=== PATIENT | male | born 1950 | race Caucasian/White ===

== ENCOUNTER 2017-02-11 02:47 | Inpatient (IN) | payer OTHER ==
[~2017-02-11] VITALS: Ht 175.3 cm; Wt 90.9 kg
[2017-02-11 03:58] LABS: HEMATOCRIT 37.2 % (38.0-50.0); MCH 30.4 PG (29.0-34.0); MCHC 34.7 G/DL (30.0-36.0); MCV 87.7 FL (86-99); MEAN PLAT.VOLUME 10.9 uM^3 (9.0-12.4); PLATELET COUNT 146 K/uL (156-360); RBC DIS.WIDTH-CV 11.8 % (11.8-14.6); RBC DIS.WIDTH-SD 37.9 % (39-53); RED BLOOD COUNT 4.24 M/uL (4.00-5.50); WHITE BLOOD COUNT 7.2 K/uL (4.1-10.2)
[2017-02-11 04:06] LABS: CHLORIDE 104 mEq/L (99-109); POTASSIUM 4.2 mEq/L (3.7-5.4); SODIUM 138 mEq/L (136-147)
[2017-02-11 04:10] LABS: ANION GAP 9 MEQ/L (2-14); TOTAL BILIRUBIN 0.5 mg/dL (0.0-1.0)
[2017-02-11 04:12] LABS: ALKALINE PHOSPHATASE 66 IU/L (3-129); GFR ESTIMATE (CALCULATED) > 59 mL/min/
[2017-02-11 04:13] LABS: UREA NITROGEN (BUN) 16 mg/dL (9-23)
[2017-02-11 04:15] LABS: LIPASE 28 U/L (1.0-51.0)
[2017-02-11 04:16] LABS: CREATINE KINASE 207 IU/L (1-294); TOTAL CK 207 IU/L (1-294)
[2017-02-11 04:17] LABS: GLUCOSE 413 mg/dL (70-99)
[2017-02-11 04:21] LABS: CK-MB 1.3 ng/mL (0.0-4.9)
[2017-02-11 04:35] LABS: BASE EXCESS 1.5 mEq/L (-3 to +3); BICARBONATE 27.2 mEq/L (22-26); CARBOXY HGB 1.7 % (0-5); COMMENTS - BLOOD GASES C+; METHEMOGLOBIN 0.9 % (0-1.5); MODE ROOM AIR; PCO2 46 mm Hg (35-45); PO2 65 mm Hg (80-100); SITE LB; TOTAL RESP RATE 16 resp/min; pH 7.38 (7.35-7.45)
[2017-02-11 04:45] LABS: ADD MIUA? NO; BILIRUBIN NEGATIVE; BLOOD NEGATIVE; COLOR STRAW ((YELLOW)); GLUCOSE (STRIP) >=500; KETONES NEGATIVE; LEUKOCYTES NEGATIVE; NITRITE NEGATIVE; PROTEIN (STRIP) NEGATIVE; SPECIFIC GRAVITY 1.026 (1.000-1.030); UCUL ADDED? NO; UROBILINOGEN 0.2 MG/DL (0.2-1.0)
[2017-02-11 07:36] LABS: POINT-OF-CARE METER ID UU13113747
[2017-02-11 07:56] LABS: POINT-OF-CARE METER ID UU13113702
[2017-02-11] MEDS ORDERED: LOPRESSOR100 M1 PO (08:41)
[2017-02-11] MEDS ORDERED: LOSARTAN-HCTZ1 EACH PO (08:41)
[2017-02-11] MEDS ORDERED: CRESTOR10 MG PO (08:42)
[2017-02-11] MEDS ORDERED: ST. JOSEPH ASPI81 MG PO (08:42)
[2017-02-11 09:14] LABS: CREATINE KINASE 214 IU/L (1-294); TOTAL CK 214 IU/L (1-294)
[2017-02-11 09:19] LABS: CK-MB 1.2 ng/mL (0.0-4.9)
[2017-02-11 10:03] LABS: HDL CHOLESTEROL 30 MG/DL (Desirable>=40); LDL CHOLESTEROL 123 mg/dL (Desirable<100); NON-HDL CHOLESTEROL 156 mg/dL (Desirable<160); TOTAL CHOLESTEROL 186 mg/dL (Desirable<200); TRIGLYCERIDES 164 MG/DL (Normal: <150)
[2017-02-11 10:14] LABS: Estimated Average Glucose 292 mg/dL (70-123); HEMOGLOBIN A1c (GLYCOHEMOGLOB) 11.8 % HGB (Below 5.7)
[2017-02-11 11:02] VITALS: BP 145/86
[2017-02-11] MEDS ORDERED: FISH OIL 1,0001 EAC7 PO (12:13)
[2017-02-11] MEDS ORDERED: SLEEP AID25 M1 PO (12:13)
[2017-02-11 16:10] VITALS: BP 154/74
[2017-02-11 21:05] VITALS: BP 146/85
[2017-02-11 21:42] LABS: POINT-OF-CARE METER ID UU13113717
[2017-02-12 00:46] VITALS: BP 160/95
[2017-02-12 04:38] VITALS: BP 123/72
[2017-02-12 07:14] LABS: ANION GAP 7 MEQ/L (2-14); CHLORIDE 100 MEQ/L (99-109); GFR ESTIMATE (CALCULATED) > 59 mL/min/; POTASSIUM 3.6 MEQ/L (3.7-5.4); SAMPLE HEMOLYSIS CHECK 0; SAMPLE ICTERIC CHECK 0; SAMPLE LIPEMIA CHECK 0; SODIUM 136 MEQ/L (136-147); UREA NITROGEN (BUN) 10 mg/dL (9-23)
[2017-02-12 07:15] LABS: GLUCOSE 162 mg/dL (70-99)
[2017-02-12 07:58] VITALS: BP 150/84
[2017-02-12 11:54] VITALS: BP 161/74
[2017-02-12 11:54] LABS: POINT-OF-CARE METER ID UU13113717
[2017-02-12 16:50] VITALS: BP 149/80
[2017-02-12 20:06] VITALS: BP 162/94
[2017-02-13 00:26] VITALS: BP 140/83
[2017-02-13 04:18] VITALS: BP 110/67
[2017-02-13 07:32] VITALS: BP 147/70
[2017-02-13] MEDS ORDERED: LEVEMIR100 UNIT/2 SC (08:25)
[2017-02-13] MEDS ORDERED: LEVETIRACETAM500 MG PO (08:25)
[2017-02-13] MEDS ORDERED: CLOPIDOGREL75 MG PO (08:25)
[2017-02-13] MEDS ORDERED: CRESTOR20 MG PO (08:25)
[2017-02-13 11:15] VITALS: BP 133/69
== END 2017-02-13 13:48 | disposition home health service (06) | DRG 67 ==
LOC: EME → EDBD 02:47 → EDOF 07:49 → ENRESERV 07:54 → 5WEST 10:38 → 5SOUTH 16:42 → 5WEST 16:42 → ENRESERV 16:44 → 5SOUTH 19:37
PROVIDERS: Emergency Medicine; Internal Medicine
DX: I65.21 Occlusion and stenosis of right carotid artery (principal); I63.9 Cerebral infarction, unspecified; G40.89 Other seizures; E11.65 Type 2 diabetes mellitus with hyperglycemia; I10 Essential (primary) hypertension; E78.5 Hyperlipidemia, unspecified; G93.9 Disorder of brain, unspecified; Z68.29 Body mass index [BMI] 29.0-29.9, adult; E66.9 Obesity, unspecified; Z79.82 Long term (current) use of aspirin; Z79.899 Other long term (current) drug therapy; Z83.3 Family history of diabetes mellitus
CPT/HCPCS: 36600; 70140; 70553; 80048; 80053; 80061; 81003; 82550; 82550 91; 82553; 82803; 82948; 83036; 83690; 84443; 85027; 92610 GN; 93005; 93306; 93880; 99281; 99285; J1650; J1815; J1953; J7030; J7050; S0028